=== PATIENT | male | born 1945 | race Caucasian/White ===

== ENCOUNTER → 2019-11-17 | Outpatient (CLI) | payer MEDICARE | END | disposition home or self-care (01) | LOC: COVID19 02:23 | PROVIDERS: ATTEND Ophthalmology | DX: Z01.812 Encounter for preprocedural laboratory examination (principal); Z20.828 Contact with and (suspected) exposure to other viral communicable diseases ==

== ENCOUNTER → 2019-11-22 | Day surgery (SDC) | payer MEDICARE ==
[~2019-11-22] VITALS: Ht 190.5 cm; Wt 83.9 kg
[2019-11-22 09:08] VITALS: BP 114/61
[2019-11-22 10:21] VITALS: BP 96/61
[2019-11-22 10:35] VITALS: BP 112/70
[2019-11-22 10:48] VITALS: BP 117/68
== END | disposition home or self-care (01) ==
LOC: SDC 11-16 11:00
PROVIDERS: ATTEND Ophthalmology
DX: H25.811 Combined forms of age-related cataract, right eye (principal)

== ENCOUNTER → 2020-01-12 | Outpatient (CLI) | payer MEDICARE ==
[~2020-01-12] MED LIST: [UNRECOGNIZED DRUG - REMARK]
== END | disposition home or self-care (01) ==
LOC: COVID19 09:34
PROVIDERS: ATTEND Ophthalmology
DX: Z01.812 Encounter for preprocedural laboratory examination (principal); Z20.828 Contact with and (suspected) exposure to other viral communicable diseases

== ENCOUNTER → 2020-03-15 | Outpatient (CLI) | payer MEDICARE ==
[~2020-03-15] MED LIST changes: +HYDROCODONE-AC1 EAC1 PO; +METOPROLOL SUCC50 M1 PO; +NOVOLOG FL100 UNIT/2 SC; +VITAMIN D350 MC2 PO; +XARE20MG PO; +ZOSYN 4.54.5 GM/100 IV
== END | disposition home or self-care (01) ==
LOC: COVID19 08:12
PROVIDERS: ATTEND Ophthalmology
DX: Z20.822 Contact with and (suspected) exposure to COVID-19 (principal)

== ENCOUNTER → 2020-03-20 | Day surgery (SDC) | payer MEDICARE ==
[~2020-03-20] VITALS: Ht 188 cm; Wt 84.0 kg
[2020-03-20 08:25] VITALS: BP 142/73
[2020-03-20 10:11] VITALS: BP 136/75
[2020-03-20 10:26] VITALS: BP 141/80
[2020-03-20 10:41] VITALS: BP 138/76
== END ==
LOC: SDC 01-12 09:30
PROVIDERS: ATTEND Ophthalmology
DX: H25.812 Combined forms of age-related cataract, left eye (principal); Z87.891 Personal history of nicotine dependence

== ENCOUNTER 2020-05-27 08:20 | Inpatient (IN) | payer MEDICARE ==
[~2020-05-27] VITALS: Ht 193 cm; Wt 75.3 kg
[2020-05-27] VITALS (11 sets, daily range): BP systolic 90–172; BP diastolic 39–153
[~2020-05-27 08:20] MED LIST changes: -HYDROCODONE-AC1 EAC1 PO; -METOPROLOL SUCC50 M1 PO; -NOVOLOG FL100 UNIT/2 SC; -VITAMIN D350 MC2 PO; -XARE20MG PO; -ZOSYN 4.54.5 GM/100 IV
[2020-05-27 09:09] LABS: HEMATOCRIT 34.1 % (42.0-52.0); MEAN CORPUSCULAR HGB 28.8 pg (27.0-31.0); MEAN PLATELET VOLUME 9.2 fl (9.6-12.3); PLATELET COUNT AUTOMATED 354 10*3/uL (130-400); RED BLOOD COUNT 3.79 10*6/uL (4.50-5.90); RED CELL DISTRI WIDTH 14.1 % (0-14.5)
[2020-05-27 09:14] LABS: ACT PARTIAL THROMBO TIME 33.8 SECONDS (20.0-32.1); INTERNATIONAL NORM RATIO 1.3 (2.0-3.5)
[2020-05-27 09:28] LABS: BURR CELLS FEW; PLATELET SUFFICIENCY NORMAL (NORMAL); ROULEAUX SLIGHT; TOTAL CELLS COUNTED 100 #CELLS; TOXIC GRANULATION SLIGHT; VACUOLATION OF NEUTROPHILS SLIGHT
[2020-05-27 09:29] LABS: TROPONIN I < 0.015 ng/ml (<0.045)
[2020-05-27 09:30] LABS: ALBUMIN 1.3 gm/dl (3.1-4.5); ALKALINE PHOSPHATASE 133 U/L (45-117); BUN 15 mg/dl (7-24); CHLORIDE 92 mmol/L (98-107); CREATININE 0.82 mg/dL (0.70-1.30); LIPASE 43 U/L (73-393); POTASSIUM 4.1 mmol/L (3.5-5.1); SGOT/AST 28 IU/L (3-35); SGPT/ALT 19 U/L (12-78); SODIUM 125 mmol/L (136-145); TOTAL PROTEIN 8.1 gm/dL (6.4-8.2)
[2020-05-28 01:08] VITALS: BP 125/76
[2020-05-28 07:16] LABS: HEMATOCRIT 29.4 % (42.0-52.0); MEAN CELL VOLUME 92.2 fl (80.0-94.0); MEAN CORPUSCULAR HGB 28.2 pg (27.0-31.0); MEAN CORPUSCULAR HGB CONC 30.6 g/dl (33.0-37.0); MEAN PLATELET VOLUME 9.2 fl (9.6-12.3); PLATELET COUNT AUTOMATED 271 10*3/uL (130-400); RED BLOOD COUNT 3.19 10*6/uL (4.50-5.90); RED CELL DISTRI WIDTH 14.6 % (0-14.5); WHITE BLOOD COUNT 22.7 10*3/uL (4.8-10.8)
[2020-05-28 07:40] LABS: BURR CELLS MODERATE; PLATELET SUFFICIENCY NORMAL (NORMAL); ROULEAUX MODERATE; TOTAL CELLS COUNTED 100 #CELLS; TOXIC GRANULATION SLIGHT
[2020-05-28 07:50] LABS: BUN 12 mg/dl (7-24); CHLORIDE 102 mmol/L (98-107); CHOLESTEROL 53 mg/dL (<200); CREATININE 0.73 mg/dL (0.70-1.30); FREE T4 0.91 ng/dl (0.76-1.46); HDL CHOLESTEROL 18 mg/dl (40-60); LDL CHOLESTEROL 23 mg/dL (9-159); POTASSIUM 3.6 mmol/L (3.5-5.1); SGOT/AST 20 IU/L (3-35); SGPT/ALT 16 U/L (12-78); SODIUM 133 mmol/L (136-145); TOTAL PROTEIN 6.8 gm/dL (6.4-8.2); TRIGLYCERIDES 60 mg/dl (<150); VLDL CHOLESTEROL 12 mg/dL (6-40)
[2020-05-28 07:54] LABS: ALKALINE PHOSPHATASE 109 U/L (45-117)
[2020-05-28 09:11] LABS: VITAMIN D, 25-HYDROXY 10.5 ng/mL (30-100)
[2020-05-28 12:00] VITALS: BP 139/69
[2020-05-28 16:00] VITALS: BP 136/69
[2020-05-28 20:00] VITALS: BP 91/60
[2020-05-29] VITALS (9 sets, daily range): BP systolic 87–112; BP diastolic 48–69
[2020-05-29 06:49] LABS: BASO % 0.1 % (0.0-1.0); EOS % 0.1 % (1.0-4.0); HEMATOCRIT 26.5 % (42.0-52.0); LYMPH # 1.4 10*3/uL (1.3-4.4); LYMPH % 10.3 % (27.0-41.0); MEAN CELL VOLUME 91.1 fl (80.0-94.0); MEAN CORPUSCULAR HGB 28.5 pg (27.0-31.0); MEAN CORPUSCULAR HGB CONC 31.3 g/dl (33.0-37.0); MEAN PLATELET VOLUME 8.9 fl (9.6-12.3); MONO # 0.7 10*3/uL (0.1-1.0); MONO % 5.1 % (3.0-9.0); NEUT % 83.4 % (47.0-73.0); PLATELET COUNT AUTOMATED 249 10*3/uL (130-400); RED BLOOD COUNT 2.91 10*6/uL (4.50-5.90); RED CELL DISTRI WIDTH 14.6 % (0-14.5); WHITE BLOOD COUNT 13.2 10*3/uL (4.8-10.8)
[2020-05-29 07:05] LABS: ALBUMIN 0.9 gm/dl (3.1-4.5); ALKALINE PHOSPHATASE 92 U/L (45-117); BUN 8 mg/dl (7-24); CHLORIDE 103 mmol/L (98-107); CREATININE 0.57 mg/dL (0.70-1.30); POTASSIUM 3.4 mmol/L (3.5-5.1); SGOT/AST 19 IU/L (3-35); SGPT/ALT 13 U/L (12-78); SODIUM 134 mmol/L (136-145); TOTAL PROTEIN 6.4 gm/dL (6.4-8.2)
[2020-05-29 12:07] LABS: ACID FAST SPEC PROCESSING Tissue Grinding (.)
[2020-05-30] VITALS: BP 98/44
[2020-05-30 08:00] VITALS: BP 96/50
[2020-05-30 08:41] LABS: BASO % 0.1 % (0.0-1.0); EOS % 0.1 % (1.0-4.0); HEMATOCRIT 26.6 % (42.0-52.0); LYMPH # 1.6 10*3/uL (1.3-4.4); LYMPH % 10.4 % (27.0-41.0); MEAN CELL VOLUME 92.7 fl (80.0-94.0); MEAN CORPUSCULAR HGB 28.6 pg (27.0-31.0); MEAN CORPUSCULAR HGB CONC 30.8 g/dl (33.0-37.0); MEAN PLATELET VOLUME 8.8 fl (9.6-12.3); MONO # 0.9 10*3/uL (0.1-1.0); MONO % 5.4 % (3.0-9.0); PLATELET COUNT AUTOMATED 250 10*3/uL (130-400); RED BLOOD COUNT 2.87 10*6/uL (4.50-5.90); RED CELL DISTRI WIDTH 14.6 % (0-14.5); WHITE BLOOD COUNT 15.7 10*3/uL (4.8-10.8)
[2020-05-30 12:00] VITALS: BP 109/56
[2020-05-30 16:00] VITALS: BP 105/62
[2020-05-30 20:00] VITALS: BP 96/54
[2020-05-31] VITALS: BP 103/53
[2020-05-31 06:12] LABS: BASO % 0.3 % (0.0-1.0); EOS % 0.3 % (1.0-4.0); HEMATOCRIT 26.8 % (42.0-52.0); LYMPH # 1.4 10*3/uL (1.3-4.4); LYMPH % 18.2 % (27.0-41.0); MEAN CELL VOLUME 91.8 fl (80.0-94.0); MEAN CORPUSCULAR HGB 28.1 pg (27.0-31.0); MEAN CORPUSCULAR HGB CONC 30.6 g/dl (33.0-37.0); MONO # 0.5 10*3/uL (0.1-1.0); MONO % 6.5 % (3.0-9.0); NEUT # 5.7 10*3/uL (2.3-7.9); NEUT % 73.5 % (47.0-73.0); PLATELET COUNT AUTOMATED 260 10*3/uL (130-400); RED BLOOD COUNT 2.92 10*6/uL (4.50-5.90); RED CELL DISTRI WIDTH 14.6 % (0-14.5); WHITE BLOOD COUNT 7.8 10*3/uL (4.8-10.8)
[2020-05-31 08:00] VITALS: BP 98/52
[2020-05-31 10:40] VITALS: BP 112/68
[2020-05-31 12:00] VITALS: BP 110/54
[2020-05-31] MEDS ORDERED: ZOSYN 4.54.5 GM/100 IV (13:22)
[2020-05-31] MEDS ORDERED: VITAMIN D350 MC2 PO (13:22)
[2020-05-31] MEDS ORDERED: XARE20MG PO (13:22)
[2020-05-31] MEDS ORDERED: METOPROLOL SUCC50 M1 PO (13:22)
[2020-05-31] MEDS ORDERED: HYDROCODONE-AC1 EAC1 PO (13:23)
[2020-05-31] MEDS ORDERED: NOVOLOG FL100 UNIT/2 SC (13:27)
[2020-05-31 14:08] LABS: ACID FAST SPEC PROCESSING Tissue Grinding (.)
[2020-05-31 14:08] LABS: ACID FAST SPEC PROCESSING Tissue Grinding (.)
[2020-05-31 16:00] VITALS: BP 105/70
== END 2020-05-31 17:24 | DRG 853 ==
LOC: ED 08:20 → 5E 10:03 → EDHOLD 10:03 → 5E 11:54
PROVIDERS: Emergency Medicine; Internal Medicine; Podiatrist; Registered Nurse; ADMIT Internal Medicine; ATTEND Internal Medicine
PROC: 0Y6M0Z0 Detachment at Right Foot, Complete, Open Approach (ICD-10-PCS; principal; 2020-05-27)
PROC: 0QBG0ZZ Excision of Right Tibia, Open Approach (ICD-10-PCS; 2020-05-27)
PROC: 0QBG0ZX Excision of Right Tibia, Open Approach, Diagnostic (ICD-10-PCS; 2020-05-27)
PROC: 0YBK0ZZ Excision of Right Ankle Region, Open Approach (ICD-10-PCS; 2020-05-29)
PROC: 0SBF0ZX Excision of Right Ankle Joint, Open Approach, Diagnostic (ICD-10-PCS; 2020-05-29)
PROC: 02HV33Z Insertion of Infusion Device into Superior Vena Cava, Percutaneous Approach (ICD-10-PCS; 2020-05-31)
PROC: B548ZZA Ultrasonography of Superior Vena Cava, Guidance (ICD-10-PCS; 2020-05-31)
DX: A41.9 Sepsis, unspecified organism (principal); A48.0 Gas gangrene; E43 Unspecified severe protein-calorie malnutrition; M72.6 Necrotizing fasciitis; M86.171 Other acute osteomyelitis, right ankle and foot; E87.2 Acidosis; T79.A21A Traumatic compartment syndrome of right lower extremity, initial encounter; E11.52 Type 2 diabetes mellitus with diabetic peripheral angiopathy with gangrene; E87.1 Hypo-osmolality and hyponatremia; R17 Unspecified jaundice; L03.115 Cellulitis of right lower limb; R65.20 Severe sepsis without septic shock; D64.9 Anemia, unspecified; E11.69 Type 2 diabetes mellitus with other specified complication; I48.91 Unspecified atrial fibrillation; E11.65 Type 2 diabetes mellitus with hyperglycemia; E11.42 Type 2 diabetes mellitus with diabetic polyneuropathy; E11.621 Type 2 diabetes mellitus with foot ulcer; L97.513 Non-pressure chronic ulcer of other part of right foot with necrosis of muscle; E11.628 Type 2 diabetes mellitus with other skin complications; B96.20 Unspecified Escherichia coli [E. coli] as the cause of diseases classified elsewhere; X58.XXXA Exposure to other specified factors, initial encounter; Y93.89 Activity, other specified; Y92.89 Other specified places as the place of occurrence of the external cause; Y99.8 Other external cause status; Z87.891 Personal history of nicotine dependence; Z83.3 Family history of diabetes mellitus; Z82.49 Family history of ischemic heart disease and other diseases of the circulatory system; Z68.20 Body mass index [BMI] 20.0-20.9, adult; Z20.822 Contact with and (suspected) exposure to COVID-19

== ENCOUNTER → 2021-07-21 | Outpatient (CLI) | payer MEDICARE ==
[~2021-07-21] MED LIST changes: +CHLORPROMA25 MG/1 ML IM; +FUROSEMIDE40 MG PO; +HYDROCODONE-AC1 EAC1 PO; +LEVOFLOXACIN500 MG PO; +Lanoxin PO; +METFORMIN HYDR500 MG PO; +METOPROLOL SUCC50 M1 PO; +MIRTAZAPINE15 M2 PO; +MUCUS RELIEF600 MG PO; +NOVOLOG FL100 UNIT/2 SC; +VITAMIN D350 MC2 PO; +XARE20MG PO; +ZESTRIL5 MG PO; +ZOSYN 4.54.5 GM/100 IV
== END | disposition home or self-care (01) ==
LOC: RAD 13:37
PROVIDERS: ATTEND Orthopaedic Surgery
DX: M17.12 Unilateral primary osteoarthritis, left knee (principal)

== ENCOUNTER 2021-08-07 16:31 | Inpatient (IN) | payer MEDICARE ==
[2021-08-07] VITALS (10 sets, daily range): BP systolic 100–116; BP diastolic 50–64
[~2021-08-07] VITALS: Ht 190.5 cm; Wt 67.4 kg
[2021-08-07 17:36] LABS: MEAN CELL VOLUME 87.9 fl (80.0-94.0); MEAN CORPUSCULAR HGB 26.4 pg (27.0-31.0); MEAN PLATELET VOLUME 8.5 fl (9.6-12.3); PLATELET COUNT AUTOMATED 338 10*3/uL (130-400); RED BLOOD COUNT 2.39 10*6/uL (4.50-5.90); RED CELL DISTRI WIDTH 16.7 % (0-14.5); WHITE BLOOD COUNT 12.5 10*3/uL (4.8-10.8)
[2021-08-07 17:43] LABS: MANUAL DIFF REFLEX YES
[2021-08-07 17:49] LABS: ACT PARTIAL THROMBO TIME 34.7 SECONDS (20.0-32.1); INTERNATIONAL NORM RATIO 1.5 (2.0-3.5)
[2021-08-07 17:53] LABS: ALKALINE PHOSPHATASE 89 U/L (45-117); BUN 18 mg/dl (7-24); CHLORIDE 103 mmol/L (98-107); CREATININE 0.93 mg/dL (0.70-1.30); POTASSIUM 4.7 mmol/L (3.5-5.1); SGOT/AST 16 IU/L (3-35); SGPT/ALT 9 U/L (12-78); SODIUM 136 mmol/L (136-145); TOTAL PROTEIN 7.7 gm/dL (6.4-8.2)
[2021-08-07 17:58] LABS: BASOPHILS 1 % (0-1); POLYCHROMASIA SLIGHT; TOTAL CELLS COUNTED 100 #CELLS; TOXIC GRANULATION SLIGHT
[2021-08-07 17:59] LABS: PLATELET SUFFICIENCY NORMAL (NORMAL); STOMATOCYTE FEW
[2021-08-07 18:00] LABS: OVALOCYTES FEW
[2021-08-07 23:20] LABS: BASO % 0.3 % (0.0-1.0); EOS # 0.1 10*3/uL (0.0-0.4); EOS % 0.5 % (1.0-4.0); HEMATOCRIT 23.3 % (42.0-52.0); LYMPH # 1.9 10*3/uL (1.3-4.4); LYMPH % 15.7 % (27.0-41.0); MEAN CELL VOLUME 86.3 fl (80.0-94.0); MEAN CORPUSCULAR HGB CONC 31.3 g/dl (33.0-37.0); MEAN PLATELET VOLUME 8.3 fl (9.6-12.3); MONO # 0.9 10*3/uL (0.1-1.0); MONO % 7.7 % (3.0-9.0); NEUT # 8.9 10*3/uL (2.3-7.9); NEUT % 74.7 % (47.0-73.0); PLATELET COUNT AUTOMATED 329 10*3/uL (130-400); RED CELL DISTRI WIDTH 16.4 % (0-14.5); WHITE BLOOD COUNT 11.9 10*3/uL (4.8-10.8)
[2021-08-08] VITALS (7 sets, daily range): BP systolic 104–122; BP diastolic 49–67
[2021-08-08] MEDS ORDERED: TYLENOL325 M1 PO (00:14)
[2021-08-08] MEDS ORDERED: MORGIDOX100 MG PO (00:15)
[2021-08-08] MEDS ORDERED: HEARTBURN RELIE20 MG PO (00:16)
[2021-08-08] MEDS ORDERED: CEPHALEXIN500 M1 PO (00:17)
[2021-08-08] MEDS ORDERED: TOPROL XL50 M1 PO (00:20)
[2021-08-08] MEDS ORDERED: COMPLETE SENIO1 EACH PO (00:21)
[2021-08-08] MEDS ORDERED: OMEPRAZOLE40 MG PO (00:22)
[2021-08-08] MEDS ORDERED: ISO D3 2,000 U1 EACH PO (00:23)
[2021-08-08 06:41] LABS: BASO # 0.1 10*3/uL (0.0-0.1); BASO % 0.4 % (0.0-1.0); EOS # 0.1 10*3/uL (0.0-0.4); EOS % 0.4 % (1.0-4.0); LYMPH # 1.6 10*3/uL (1.3-4.4); LYMPH % 13.9 % (27.0-41.0); MEAN CELL VOLUME 87.1 fl (80.0-94.0); MEAN CORPUSCULAR HGB 26.8 pg (27.0-31.0); MEAN CORPUSCULAR HGB CONC 30.8 g/dl (33.0-37.0); MEAN PLATELET VOLUME 8.8 fl (9.6-12.3); MONO # 0.9 10*3/uL (0.1-1.0); MONO % 7.4 % (3.0-9.0); NEUT # 8.8 10*3/uL (2.3-7.9); NEUT % 76.6 % (47.0-73.0); PLATELET COUNT AUTOMATED 407 10*3/uL (130-400); RED BLOOD COUNT 2.87 10*6/uL (4.50-5.90); RED CELL DISTRI WIDTH 16.4 % (0-14.5); WHITE BLOOD COUNT 11.5 10*3/uL (4.8-10.8)
[2021-08-08 06:57] LABS: ALKALINE PHOSPHATASE 81 U/L (45-117); BUN 15 mg/dl (7-24); CHLORIDE 104 mmol/L (98-107); CHOLESTEROL 75 mg/dL (<200); CREATININE 0.76 mg/dL (0.70-1.30); LDL CHOLESTEROL 27 mg/dL (9-159); POTASSIUM 3.9 mmol/L (3.5-5.1); SGOT/AST 14 IU/L (3-35); SGPT/ALT 7 U/L (12-78); SODIUM 140 mmol/L (136-145); TOTAL PROTEIN 7.4 gm/dL (6.4-8.2); TRIGLYCERIDES 79 mg/dl (<150)
[2021-08-08 10:43] LABS: VITAMIN D, 25-HYDROXY 68.9 ng/mL (30-100)
[2021-08-08] MEDS ORDERED: ZOSYN 3.373.375 GM/1 IV (11:09)
[2021-08-08] MEDS ORDERED: VANCO 750750 MG/250 IV (11:10)
[2021-08-08 21:45] LABS: BILIRUBIN Negative (Negative); BLOOD 2+ (Negative); CLARITY Clear (Clear); COLOR Yellow (Yellow); GLUCOSE Negative (Negative); KETONE Negative (Negative); LEUKO ESTERASE Negative (Negative); NITRITE Negative (Negative); SPECIFIC GRAVITY 1.015 (1.001-1.030)
[2021-08-08 21:54] LABS: BACTERIA 1+; RBC 31-40 rbc/hpf (0-2)
[2021-08-09 03:56] VITALS: BP 128/64
[2021-08-09 07:45] VITALS: BP 134/60
[2021-08-09 14:50] VITALS: BP 138/56
[2021-08-09 20:00] VITALS: BP 107/60
[2021-08-10] VITALS: BP 116/68
[2021-08-10 08:00] VITALS: BP 138/69
[2021-08-10 08:29] LABS: BASO % 0.5 % (0.0-1.0); EOS # 0.1 10*3/uL (0.0-0.4); EOS % 1.3 % (1.0-4.0); HEMATOCRIT 26.4 % (42.0-52.0); LYMPH # 1.3 10*3/uL (1.3-4.4); LYMPH % 15.9 % (27.0-41.0); MEAN CELL VOLUME 88.3 fl (80.0-94.0); MEAN CORPUSCULAR HGB 26.1 pg (27.0-31.0); MEAN CORPUSCULAR HGB CONC 29.5 g/dl (33.0-37.0); MEAN PLATELET VOLUME 8.4 fl (9.6-12.3); MONO # 0.7 10*3/uL (0.1-1.0); MONO % 8.4 % (3.0-9.0); NEUT # 6.2 10*3/uL (2.3-7.9); NEUT % 73.1 % (47.0-73.0); PLATELET COUNT AUTOMATED 343 10*3/uL (130-400); RED BLOOD COUNT 2.99 10*6/uL (4.50-5.90); RED CELL DISTRI WIDTH 16.7 % (0-14.5); WHITE BLOOD COUNT 8.4 10*3/uL (4.8-10.8)
[2021-08-10 08:58] LABS: ALKALINE PHOSPHATASE 85 U/L (45-117); BUN 11 mg/dl (7-24); CHLORIDE 107 mmol/L (98-107); CREATININE 0.85 mg/dL (0.70-1.30); POTASSIUM 4.1 mmol/L (3.5-5.1); SGOT/AST 14 IU/L (3-35); SGPT/ALT 8 U/L (12-78); SODIUM 141 mmol/L (136-145); TOTAL PROTEIN 7.7 gm/dL (6.4-8.2)
[2021-08-10 12:00] VITALS: BP 132/65
[2021-08-10 16:00] VITALS: BP 123/71
[2021-08-10 20:00] VITALS: BP 121/68
[2021-08-11] VITALS: BP 126/56
[2021-08-11 07:09] LABS: BASO % 0.5 % (0.0-1.0); EOS # 0.3 10*3/uL (0.0-0.4); EOS % 3.1 % (1.0-4.0); HEMATOCRIT 25.4 % (42.0-52.0); LYMPH # 1.5 10*3/uL (1.3-4.4); LYMPH % 17.8 % (27.0-41.0); MEAN CELL VOLUME 89.4 fl (80.0-94.0); MEAN CORPUSCULAR HGB 26.1 pg (27.0-31.0); MEAN CORPUSCULAR HGB CONC 29.1 g/dl (33.0-37.0); MEAN PLATELET VOLUME 8.5 fl (9.6-12.3); MONO # 0.7 10*3/uL (0.1-1.0); MONO % 8.8 % (3.0-9.0); NEUT # 5.8 10*3/uL (2.3-7.9); PLATELET COUNT AUTOMATED 341 10*3/uL (130-400); RED BLOOD COUNT 2.84 10*6/uL (4.50-5.90); RED CELL DISTRI WIDTH 16.8 % (0-14.5); WHITE BLOOD COUNT 8.4 10*3/uL (4.8-10.8)
[2021-08-11 07:23] LABS: BUN 9 mg/dl (7-24); CHLORIDE 108 mmol/L (98-107); CREATININE 0.84 mg/dL (0.70-1.30); SODIUM 142 mmol/L (136-145)
[2021-08-11 08:00] VITALS: BP 135/53
[2021-08-11 12:00] VITALS: BP 150/52
[2021-08-11 16:00] VITALS: BP 132/69
[2021-08-11 20:00] VITALS: BP 134/61
[2021-08-12] VITALS: BP 124/60
[2021-08-12 06:18] LABS: BASO # 0.1 10*3/uL (0.0-0.1); BASO % 0.5 % (0.0-1.0); EOS # 0.4 10*3/uL (0.0-0.4); EOS % 3.9 % (1.0-4.0); HEMATOCRIT 24.6 % (42.0-52.0); LYMPH # 1.6 10*3/uL (1.3-4.4); LYMPH % 15.7 % (27.0-41.0); MEAN CELL VOLUME 90.1 fl (80.0-94.0); MEAN CORPUSCULAR HGB 27.1 pg (27.0-31.0); MEAN CORPUSCULAR HGB CONC 30.1 g/dl (33.0-37.0); MEAN PLATELET VOLUME 8.7 fl (9.6-12.3); MONO # 0.8 10*3/uL (0.1-1.0); NEUT # 7.4 10*3/uL (2.3-7.9); NEUT % 71.2 % (47.0-73.0); PLATELET COUNT AUTOMATED 310 10*3/uL (130-400); RED BLOOD COUNT 2.73 10*6/uL (4.50-5.90); WHITE BLOOD COUNT 10.3 10*3/uL (4.8-10.8)
[2021-08-12 08:00] VITALS: BP 126/68
[2021-08-12 12:00] VITALS: BP 118/56
[2021-08-12 16:00] VITALS: BP 123/62
[2021-08-12 20:00] VITALS: BP 117/61
[2021-08-13] VITALS: BP 120/76
[2021-08-13 08:00] VITALS: BP 138/54
[2021-08-13 12:00] VITALS: BP 132/68
[2021-08-13 16:00] VITALS: BP 123/53
[2021-08-13 20:00] VITALS: BP 130/62
== END 2021-08-13 20:50 | disposition short-term general hospital (02) | DRG 871 ==
LOC: ED 16:31 → 5E 17:19 → EDHOLD 17:19 → ED 17:26 → EDHOLD 17:26 → ED 21:48 → EDHOLD 21:48 → 5E 08-09 14:09
PROVIDERS: Emergency Medicine; Family Medicine; Internal Medicine; ADMIT Student in an Organized Health Care Education/Training Program; ATTEND Student in an Organized Health Care Education/Training Program
PROC: 30233N1 Transfusion of Nonautologous Red Blood Cells into Peripheral Vein, Percutaneous Approach (ICD-10-PCS; principal; 2021-08-07)
DX: A41.9 Sepsis, unspecified organism (principal); E43 Unspecified severe protein-calorie malnutrition; L02.214 Cutaneous abscess of groin; I48.21 Permanent atrial fibrillation; Z68.1 Body mass index [BMI] 19.9 or less, adult; D64.9 Anemia, unspecified; E11.69 Type 2 diabetes mellitus with other specified complication; R65.20 Severe sepsis without septic shock; Z20.822 Contact with and (suspected) exposure to COVID-19; S31.104A Unspecified open wound of abdominal wall, left lower quadrant without penetration into peritoneal cavity, initial encounter; X58.XXXA Exposure to other specified factors, initial encounter; Z98.41 Cataract extraction status, right eye; Z87.891 Personal history of nicotine dependence; Z82.49 Family history of ischemic heart disease and other diseases of the circulatory system; Y93.89 Activity, other specified; Y92.89 Other specified places as the place of occurrence of the external cause; Y99.8 Other external cause status; Z89.611 Acquired absence of right leg above knee; I73.9 Peripheral vascular disease, unspecified

== ENCOUNTER 2021-10-06 01:55 | Inpatient (IN) | payer MEDICARE ==
[~2021-10-06] VITALS: Ht 190.5 cm; Wt 74.4 kg
[~2021-10-06 01:55] MED LIST changes: +CEPHALEXIN500 M1 PO; +CIPRO500 MG PO; +COMPLETE SENIO1 EACH PO; +HEARTBURN RELIE20 MG PO; +ISO D3 2,000 U1 EACH PO; +MORGIDOX100 MG PO; +OMEPRAZOLE40 MG PO; +TOPROL XL50 M1 PO; +TYLENOL325 M1 PO; +VANCO 750750 MG/250 IV; +ZOSYN 3.373.375 GM/1 IV
[2021-10-06 01:56] VITALS: BP 143/67
[2021-10-06 03:08] LABS: BASO % 0.5 % (0.0-1.0); EOS % 0.7 % (1.0-4.0); HEMATOCRIT 25.2 % (42.0-52.0); LYMPH # 0.6 10*3/uL (1.3-4.4); LYMPH % 9.2 % (27.0-41.0); MEAN CELL VOLUME 95.5 fl (80.0-94.0); MEAN CORPUSCULAR HGB 29.9 pg (27.0-31.0); MEAN CORPUSCULAR HGB CONC 31.3 g/dl (33.0-37.0); MEAN PLATELET VOLUME 8.7 fl (9.6-12.3); MONO # 0.4 10*3/uL (0.1-1.0); MONO % 6.8 % (3.0-9.0); NEUT # 4.9 10*3/uL (2.3-7.9); NEUT % 82.3 % (47.0-73.0); PLATELET COUNT AUTOMATED 242 10*3/uL (130-400); RED BLOOD COUNT 2.64 10*6/uL (4.50-5.90); RED CELL DISTRI WIDTH 17.2 % (0-14.5)
[2021-10-06 03:23] LABS: CREATININE 3.89 mg/dL (0.70-1.30); POTASSIUM 4.4 mmol/L (3.5-5.1); TOTAL PROTEIN 8.2 gm/dL (6.4-8.2)
[2021-10-06 04:07] LABS: BILIRUBIN Negative (Negative); BLOOD 3+ (Negative); CLARITY Cloudy (Clear); COLOR Yellow (Yellow); GLUCOSE Negative (Negative); KETONE Negative (Negative); LEUKO ESTERASE 3+ (Negative); NITRITE Negative (Negative); SPECIFIC GRAVITY 1.015 (1.001-1.030); UROBILINOGEN 0.2 E.U./dl (0.0-1.0)
[2021-10-06 04:24] LABS: YEAST 2+
[2021-10-06 04:25] LABS: BACTERIA 1+; RBC 31-40 rbc/hpf (0-2); WBC 41-50 wbc/hpf (0-5)
[2021-10-06 07:52] VITALS: BP 147/79
[2021-10-06 10:15] VITALS: BP 130/52
[2021-10-06 12:00] VITALS: BP 132/61
[2021-10-06 16:00] VITALS: BP 135/71
[2021-10-06 20:02] VITALS: BP 138/70
[2021-10-07 04:16] VITALS: BP 122/70
[2021-10-07 06:41] LABS: CREATININE 3.66 mg/dL (0.70-1.30); POTASSIUM 4.4 mmol/L (3.5-5.1)
[2021-10-07 06:42] LABS: BASO % 0.5 % (0.0-1.0); EOS # 0.1 10*3/uL (0.0-0.4); EOS % 1.1 % (1.0-4.0); HEMATOCRIT 27.4 % (42.0-52.0); LYMPH # 0.7 10*3/uL (1.3-4.4); LYMPH % 12.7 % (27.0-41.0); MEAN CORPUSCULAR HGB 30.1 pg (27.0-31.0); MEAN CORPUSCULAR HGB CONC 30.3 g/dl (33.0-37.0); MEAN PLATELET VOLUME 8.8 fl (9.6-12.3); MONO # 0.5 10*3/uL (0.1-1.0); MONO % 8.1 % (3.0-9.0); NEUT # 4.4 10*3/uL (2.3-7.9); NEUT % 77.1 % (47.0-73.0); PLATELET COUNT AUTOMATED 261 10*3/uL (130-400); RED BLOOD COUNT 2.76 10*6/uL (4.50-5.90); RED CELL DISTRI WIDTH 17.4 % (0-14.5); WHITE BLOOD COUNT 5.7 10*3/uL (4.8-10.8)
[2021-10-07 06:45] LABS: FREE T4 0.8 ng/dl (0.76-1.46); TOTAL PROTEIN 7.9 gm/dL (6.4-8.2)
[2021-10-07 07:40] LABS: MEAN CELL VOLUME 99.3 fl (80.0-94.0)
[2021-10-07 08:03] VITALS: BP 127/69
[2021-10-07 12:45] VITALS: BP 141/71
[2021-10-07] MEDS ORDERED: DULCOLAX10 M1 R (14:06)
[2021-10-07] MEDS ORDERED: VITAMIN D310 MC3 PO (14:09)
[2021-10-07] MEDS ORDERED: VITAMIN B-12250 MCG PO (14:12)
[2021-10-07] MEDS ORDERED: DIGOXIN125 MCG PO (14:14)
[2021-10-07] MEDS ORDERED: FLEET ENEMA 13133 ML R (14:17)
[2021-10-07] MEDS ORDERED: INSULIN LI100 UNIT/1 SQ (14:20)
[2021-10-07] MEDS ORDERED: MOM30 M1 PO (14:26)
[2021-10-07 16:00] VITALS: BP 142/65
[2021-10-07] MEDS ORDERED: MIRTAZAPINE15 M2 PO (16:35)
[2021-10-07] MEDS ORDERED: XARE15TA PO (16:36)
[2021-10-07 20:00] VITALS: BP 140/72
[2021-10-08] VITALS: BP 152/59
[2021-10-08 06:27] LABS: BASO % 0.6 % (0.0-1.0); EOS % 0.8 % (1.0-4.0); HEMATOCRIT 27.5 % (42.0-52.0); LYMPH # 0.8 10*3/uL (1.3-4.4); LYMPH % 14.4 % (27.0-41.0); MEAN CELL VOLUME 99.6 fl (80.0-94.0); MEAN CORPUSCULAR HGB 30.1 pg (27.0-31.0); MEAN CORPUSCULAR HGB CONC 30.2 g/dl (33.0-37.0); MEAN PLATELET VOLUME 8.9 fl (9.6-12.3); MONO # 0.4 10*3/uL (0.1-1.0); MONO % 7.7 % (3.0-9.0); NEUT % 76.1 % (47.0-73.0); PLATELET COUNT AUTOMATED 257 10*3/uL (130-400); RED BLOOD COUNT 2.76 10*6/uL (4.50-5.90); RED CELL DISTRI WIDTH 17.4 % (0-14.5); WHITE BLOOD COUNT 5.2 10*3/uL (4.8-10.8)
[2021-10-08 06:45] LABS: CREATININE 3.57 mg/dL (0.70-1.30); POTASSIUM 4.5 mmol/L (3.5-5.1)
[2021-10-08 08:00] VITALS: BP 171/78
[2021-10-08 12:00] VITALS: BP 167/70
[2021-10-08 16:00] VITALS: BP 141/58
[2021-10-08 20:00] VITALS: BP 126/77
[2021-10-08 20:20] LABS: URINE CREATININE RANDOM 28.9 mg/dL
[2021-10-09] VITALS: BP 139/77
[2021-10-09 06:10] LABS: CREATININE 3.52 mg/dL (0.70-1.30); POTASSIUM 4.7 mmol/L (3.5-5.1); TOTAL PROTEIN 8.1 gm/dL (6.4-8.2)
[2021-10-09 06:24] LABS: BASO # 0.1 10*3/uL (0.0-0.1); BASO % 0.8 % (0.0-1.0); EOS # 0.1 10*3/uL (0.0-0.4); EOS % 0.9 % (1.0-4.0); HEMATOCRIT 28.4 % (42.0-52.0); LYMPH % 15.7 % (27.0-41.0); MEAN CELL VOLUME 99.3 fl (80.0-94.0); MEAN CORPUSCULAR HGB 30.1 pg (27.0-31.0); MEAN CORPUSCULAR HGB CONC 30.3 g/dl (33.0-37.0); MEAN PLATELET VOLUME 8.7 fl (9.6-12.3); MONO # 0.6 10*3/uL (0.1-1.0); MONO % 9.6 % (3.0-9.0); NEUT # 4.7 10*3/uL (2.3-7.9); NEUT % 72.4 % (47.0-73.0); PLATELET COUNT AUTOMATED 262 10*3/uL (130-400); RED BLOOD COUNT 2.86 10*6/uL (4.50-5.90); RED CELL DISTRI WIDTH 17.5 % (0-14.5); WHITE BLOOD COUNT 6.4 10*3/uL (4.8-10.8)
[2021-10-09 08:00] VITALS: BP 132/53
[2021-10-09 12:00] VITALS: BP 117/60
[2021-10-09 16:00] VITALS: BP 137/50
[2021-10-09 20:00] VITALS: BP 159/78
[2021-10-10] VITALS: BP 135/72
[2021-10-10 06:44] LABS: BASO % 0.4 % (0.0-1.0); EOS % 0.6 % (1.0-4.0); HEMATOCRIT 25.2 % (42.0-52.0); LYMPH # 0.8 10*3/uL (1.3-4.4); LYMPH % 15.6 % (27.0-41.0); MEAN CORPUSCULAR HGB 29.9 pg (27.0-31.0); MEAN CORPUSCULAR HGB CONC 31.3 g/dl (33.0-37.0); MEAN PLATELET VOLUME 8.7 fl (9.6-12.3); MONO # 0.5 10*3/uL (0.1-1.0); MONO % 9.6 % (3.0-9.0); NEUT # 3.7 10*3/uL (2.3-7.9); NEUT % 73.2 % (47.0-73.0); PLATELET COUNT AUTOMATED 233 10*3/uL (130-400); RED BLOOD COUNT 2.64 10*6/uL (4.50-5.90); RED CELL DISTRI WIDTH 17.4 % (0-14.5)
[2021-10-10 06:49] LABS: MEAN CELL VOLUME 95.5 fl (80.0-94.0)
[2021-10-10 06:54] LABS: CREATININE 3.53 mg/dL (0.70-1.30); POTASSIUM 4.6 mmol/L (3.5-5.1)
[2021-10-10 08:38] VITALS: BP 140/83
[2021-10-10 12:52] VITALS: BP 144/80
[2021-10-10 13:54] LABS: BF LYMPHOCYTES 38 %; BF MACROPHAGES 49 %; BF MESOTHELIALS 7 %; BF NEUTROPHILS 6 %
[2021-10-10 15:07] LABS: ATYPICAL PANCA >1:640 titer (Neg:<1:20)
[2021-10-10 16:36] VITALS: BP 139/67
[2021-10-10 20:00] VITALS: BP 137/68
[2021-10-11] VITALS: BP 99/50
[2021-10-11 06:56] LABS: BASO % 0.3 % (0.0-1.0); EOS % 0.2 % (1.0-4.0); HEMATOCRIT 26.7 % (42.0-52.0); LYMPH # 0.7 10*3/uL (1.3-4.4); LYMPH % 10.7 % (27.0-41.0); MEAN CELL VOLUME 97.8 fl (80.0-94.0); MEAN CORPUSCULAR HGB CONC 30.7 g/dl (33.0-37.0); MEAN PLATELET VOLUME 8.8 fl (9.6-12.3); MONO # 0.6 10*3/uL (0.1-1.0); MONO % 9.2 % (3.0-9.0); NEUT # 5.3 10*3/uL (2.3-7.9); PLATELET COUNT AUTOMATED 227 10*3/uL (130-400); RED BLOOD COUNT 2.73 10*6/uL (4.50-5.90); RED CELL DISTRI WIDTH 17.8 % (0-14.5); WHITE BLOOD COUNT 6.7 10*3/uL (4.8-10.8)
[2021-10-11 07:10] LABS: CREATININE 3.63 mg/dL (0.70-1.30); POTASSIUM 4.5 mmol/L (3.5-5.1)
[2021-10-11 08:00] VITALS: BP 140/87; BP 147/40
[2021-10-11 12:00] VITALS: BP 115/66; BP 170/50
[2021-10-11 16:00] VITALS: BP 126/58
[2021-10-11 20:00] VITALS: BP 137/74
[2021-10-12] VITALS: BP 132/65
[2021-10-12 06:26] LABS: BASO % 0.6 % (0.0-1.0); EOS # 0.1 10*3/uL (0.0-0.4); EOS % 2.6 % (1.0-4.0); HEMATOCRIT 25.8 % (42.0-52.0); LYMPH # 0.9 10*3/uL (1.3-4.4); MEAN CELL VOLUME 97.7 fl (80.0-94.0); MEAN CORPUSCULAR HGB 30.3 pg (27.0-31.0); MEAN PLATELET VOLUME 8.9 fl (9.6-12.3); MONO # 0.5 10*3/uL (0.1-1.0); MONO % 8.6 % (3.0-9.0); NEUT # 3.8 10*3/uL (2.3-7.9); NEUT % 70.5 % (47.0-73.0); PLATELET COUNT AUTOMATED 205 10*3/uL (130-400); RED BLOOD COUNT 2.64 10*6/uL (4.50-5.90); RED CELL DISTRI WIDTH 17.9 % (0-14.5); WHITE BLOOD COUNT 5.4 10*3/uL (4.8-10.8)
[2021-10-12 06:39] LABS: CREATININE 3.71 mg/dL (0.70-1.30); POTASSIUM 4.3 mmol/L (3.5-5.1)
[2021-10-12 08:00] VITALS: BP 138/58
[2021-10-12 12:00] VITALS: BP 145/72
[2021-10-12 15:58] VITALS: BP 116/68
[2021-10-12 20:00] VITALS: BP 124/69
[2021-10-13] VITALS: BP 126/59
[2021-10-13 06:24] LABS: POTASSIUM 4.4 mmol/L (3.5-5.1)
[2021-10-13 06:26] LABS: BASO % 0.6 % (0.0-1.0); EOS # 0.2 10*3/uL (0.0-0.4); EOS % 2.7 % (1.0-4.0); HEMATOCRIT 27.5 % (42.0-52.0); LYMPH # 0.9 10*3/uL (1.3-4.4); LYMPH % 13.7 % (27.0-41.0); MEAN CELL VOLUME 100.4 fl (80.0-94.0); MEAN CORPUSCULAR HGB 29.9 pg (27.0-31.0); MEAN CORPUSCULAR HGB CONC 29.8 g/dl (33.0-37.0); MEAN PLATELET VOLUME 9.1 fl (9.6-12.3); MONO # 0.7 10*3/uL (0.1-1.0); NEUT # 4.8 10*3/uL (2.3-7.9); NEUT % 71.6 % (47.0-73.0); PLATELET COUNT AUTOMATED 223 10*3/uL (130-400); RED BLOOD COUNT 2.74 10*6/uL (4.50-5.90); RED CELL DISTRI WIDTH 17.8 % (0-14.5); WHITE BLOOD COUNT 6.7 10*3/uL (4.8-10.8)
[2021-10-13 06:28] LABS: CREATININE 3.85 mg/dL (0.70-1.30)
[2021-10-13 08:00] VITALS: BP 144/69
[2021-10-13 12:00] VITALS: BP 113/53
[2021-10-13 16:00] VITALS: BP 129/62
[2021-10-13 20:00] VITALS: BP 119/56
[2021-10-14] VITALS: BP 121/71
[2021-10-14 06:15] LABS: BASO % 0.6 % (0.0-1.0); EOS # 0.2 10*3/uL (0.0-0.4); EOS % 3.7 % (1.0-4.0); HEMATOCRIT 25.6 % (42.0-52.0); LYMPH # 0.9 10*3/uL (1.3-4.4); LYMPH % 18.6 % (27.0-41.0); MEAN CELL VOLUME 98.1 fl (80.0-94.0); MEAN CORPUSCULAR HGB 29.9 pg (27.0-31.0); MEAN CORPUSCULAR HGB CONC 30.5 g/dl (33.0-37.0); MEAN PLATELET VOLUME 9.1 fl (9.6-12.3); MONO # 0.5 10*3/uL (0.1-1.0); MONO % 11.2 % (3.0-9.0); NEUT # 3.2 10*3/uL (2.3-7.9); NEUT % 65.3 % (47.0-73.0); PLATELET COUNT AUTOMATED 193 10*3/uL (130-400); RED BLOOD COUNT 2.61 10*6/uL (4.50-5.90); RED CELL DISTRI WIDTH 17.9 % (0-14.5); WHITE BLOOD COUNT 4.8 10*3/uL (4.8-10.8)
[2021-10-14 06:28] LABS: CREATININE 3.72 mg/dL (0.70-1.30); POTASSIUM 4.3 mmol/L (3.5-5.1)
[2021-10-14 08:00] VITALS: BP 136/77
[2021-10-14 12:00] VITALS: BP 133/65
[2021-10-14 16:00] VITALS: BP 130/73
[2021-10-14 20:00] VITALS: BP 122/74
[2021-10-15] VITALS: BP 116/62
[2021-10-15 06:30] LABS: BASO % 0.6 % (0.0-1.0); EOS # 0.1 10*3/uL (0.0-0.4); EOS % 2.6 % (1.0-4.0); HEMATOCRIT 24.7 % (42.0-52.0); LYMPH # 0.9 10*3/uL (1.3-4.4); LYMPH % 16.6 % (27.0-41.0); MEAN CELL VOLUME 97.6 fl (80.0-94.0); MEAN CORPUSCULAR HGB CONC 30.8 g/dl (33.0-37.0); MEAN PLATELET VOLUME 9.3 fl (9.6-12.3); MONO # 0.6 10*3/uL (0.1-1.0); MONO % 11.7 % (3.0-9.0); NEUT # 3.6 10*3/uL (2.3-7.9); NEUT % 67.7 % (47.0-73.0); PLATELET COUNT AUTOMATED 194 10*3/uL (130-400); RED BLOOD COUNT 2.53 10*6/uL (4.50-5.90); RED CELL DISTRI WIDTH 17.6 % (0-14.5); WHITE BLOOD COUNT 5.3 10*3/uL (4.8-10.8)
[2021-10-15 06:49] LABS: POTASSIUM 4.4 mmol/L (3.5-5.1)
[2021-10-15 06:52] LABS: CREATININE 3.71 mg/dL (0.70-1.30)
[2021-10-15 08:00] VITALS: BP 128/63
[2021-10-15 12:00] VITALS: BP 125/58
[2021-10-15 16:00] VITALS: BP 125/67
[2021-10-15 20:00] VITALS: BP 132/76
[2021-10-16] VITALS: BP 133/70
[2021-10-16 06:19] LABS: BASO % 0.4 % (0.0-1.0); EOS # 0.1 10*3/uL (0.0-0.4); EOS % 2.3 % (1.0-4.0); HEMATOCRIT 25.1 % (42.0-52.0); LYMPH # 0.9 10*3/uL (1.3-4.4); LYMPH % 17.1 % (27.0-41.0); MEAN CELL VOLUME 97.3 fl (80.0-94.0); MEAN CORPUSCULAR HGB 30.2 pg (27.0-31.0); MEAN CORPUSCULAR HGB CONC 31.1 g/dl (33.0-37.0); MEAN PLATELET VOLUME 9.1 fl (9.6-12.3); MONO # 0.6 10*3/uL (0.1-1.0); MONO % 10.6 % (3.0-9.0); NEUT # 3.6 10*3/uL (2.3-7.9); PLATELET COUNT AUTOMATED 179 10*3/uL (130-400); RED BLOOD COUNT 2.58 10*6/uL (4.50-5.90); RED CELL DISTRI WIDTH 17.6 % (0-14.5); WHITE BLOOD COUNT 5.2 10*3/uL (4.8-10.8)
[2021-10-16 06:37] LABS: POTASSIUM 4.6 mmol/L (3.5-5.1)
[2021-10-16 06:42] LABS: CREATININE 3.69 mg/dL (0.70-1.30)
[2021-10-16 08:00] VITALS: BP 123/63
[2021-10-16 12:00] VITALS: BP 104/47
[2021-10-16 16:00] VITALS: BP 118/59
[2021-10-16 20:00] VITALS: BP 129/57
[2021-10-17] VITALS: BP 123/63
[2021-10-17 05:46] LABS: CREATININE 3.63 mg/dL (0.70-1.30); POTASSIUM 4.6 mmol/L (3.5-5.1)
[2021-10-17 06:12] LABS: BASO % 0.6 % (0.0-1.0); EOS # 0.1 10*3/uL (0.0-0.4); EOS % 2.4 % (1.0-4.0); HEMATOCRIT 23.4 % (42.0-52.0); LYMPH # 0.7 10*3/uL (1.3-4.4); LYMPH % 15.1 % (27.0-41.0); MEAN CELL VOLUME 97.9 fl (80.0-94.0); MEAN CORPUSCULAR HGB 30.5 pg (27.0-31.0); MEAN CORPUSCULAR HGB CONC 31.2 g/dl (33.0-37.0); MEAN PLATELET VOLUME 9.1 fl (9.6-12.3); MONO # 0.5 10*3/uL (0.1-1.0); MONO % 10.8 % (3.0-9.0); NEUT # 3.2 10*3/uL (2.3-7.9); PLATELET COUNT AUTOMATED 179 10*3/uL (130-400); RED BLOOD COUNT 2.39 10*6/uL (4.50-5.90); RED CELL DISTRI WIDTH 17.7 % (0-14.5); WHITE BLOOD COUNT 4.6 10*3/uL (4.8-10.8)
[2021-10-17 08:00] VITALS: BP 132/60
[2021-10-17 12:00] VITALS: BP 126/61
[2021-10-17] MEDS ORDERED: FUROSEMIDE40 MG PO (15:57)
[2021-10-17 16:00] VITALS: BP 122/68
== END 2021-10-17 18:00 | DRG 186 ==
LOC: ED 01:55 → 5E 05:57 → EDHOLD 05:57 → 5E 10-07 10:54 → EDHOLD 10-07 10:54 → 5E 10-07 11:56
PROVIDERS: Emergency Medicine; Internal Medicine; Internal Medicine Critical Care Medicine; Internal Medicine Nephrology; Student in an Organized Health Care Education/Training Program; ADMIT Internal Medicine; ATTEND Internal Medicine
PROC: 0W9930Z Drainage of Right Pleural Cavity with Drainage Device, Percutaneous Approach (ICD-10-PCS; principal; 2021-10-10)
PROC: 0WP930Z Removal of Drainage Device from Right Pleural Cavity, Percutaneous Approach (ICD-10-PCS; 2021-10-13)
DX: J90 Pleural effusion, not elsewhere classified (principal); E43 Unspecified severe protein-calorie malnutrition; G93.41 Metabolic encephalopathy; N17.0 Acute kidney failure with tubular necrosis; J18.9 Pneumonia, unspecified organism; I82.411 Acute embolism and thrombosis of right femoral vein; N39.0 Urinary tract infection, site not specified; I50.32 Chronic diastolic (congestive) heart failure; E11.51 Type 2 diabetes mellitus with diabetic peripheral angiopathy without gangrene; I48.91 Unspecified atrial fibrillation; E11.69 Type 2 diabetes mellitus with other specified complication; D64.9 Anemia, unspecified; S91.302A Unspecified open wound, left foot, initial encounter; X58.XXXA Exposure to other specified factors, initial encounter; Y93.89 Activity, other specified; Z98.49 Cataract extraction status, unspecified eye; Z89.611 Acquired absence of right leg above knee; Z82.49 Family history of ischemic heart disease and other diseases of the circulatory system; Y92.89 Other specified places as the place of occurrence of the external cause; Y99.8 Other external cause status; Z68.26 Body mass index [BMI] 26.0-26.9, adult

== ENCOUNTER → 2021-10-13 | Outpatient (CLI) | payer MEDICARE ==
[~2021-10-13] MED LIST changes: +DIGOXIN125 MCG PO; +DULCOLAX10 M1 R; +FLEET ENEMA 13133 ML R; +INSULIN LI100 UNIT/1 SQ; +MOM30 M1 PO; +VITAMIN B-12250 MCG PO; +VITAMIN D310 MC3 PO; +XARE15TA PO
== END ==
LOC: WOUNDCARE 01:04
PROVIDERS: ATTEND Podiatrist Foot & Ankle Surgery
DX: Z53.21 Procedure and treatment not carried out due to patient leaving prior to being seen by health care provider (principal)

== ENCOUNTER 2021-11-28 10:12 | Emergency (ER) | payer MEDICARE ==
[2021-11-28] VITALS (8 sets, daily range): BP systolic 111–132; BP diastolic 54–79
[~2021-11-28] VITALS: Ht 180.3 cm; Wt 68.9 kg
[2021-11-28 10:46] LABS: BASO % 0.5 % (0.0-1.0); EOS # 0.1 10*3/uL (0.0-0.4); EOS % 1.3 % (1.0-4.0); HEMATOCRIT 22.9 % (42.0-52.0); LYMPH # 0.9 10*3/uL (1.3-4.4); LYMPH % 15.5 % (27.0-41.0); MEAN CELL VOLUME 99.1 fl (80.0-94.0); MEAN CORPUSCULAR HGB 31.2 pg (27.0-31.0); MEAN CORPUSCULAR HGB CONC 31.4 g/dl (33.0-37.0); MEAN PLATELET VOLUME 8.2 fl (9.6-12.3); MONO # 0.5 10*3/uL (0.1-1.0); MONO % 8.3 % (3.0-9.0); NEUT # 4.1 10*3/uL (2.3-7.9); NEUT % 73.7 % (47.0-73.0); PLATELET COUNT AUTOMATED 232 10*3/uL (130-400); RED BLOOD COUNT 2.31 10*6/uL (4.50-5.90); RED CELL DISTRI WIDTH 16.2 % (0-14.5); WHITE BLOOD COUNT 5.5 10*3/uL (4.8-10.8)
[2021-11-28 11:05] LABS: CREATININE 3.01 mg/dL (0.70-1.30); POTASSIUM 4.1 mmol/L (3.5-5.1); TOTAL PROTEIN 8.1 gm/dL (6.4-8.2)
== END 2021-11-28 16:12 ==
LOC: ED 10:12
PROVIDERS: Student in an Organized Health Care Education/Training Program
DX: D53.9 Nutritional anemia, unspecified (principal); Z79.899 Other long term (current) drug therapy; Z79.4 Long term (current) use of insulin; Z87.891 Personal history of nicotine dependence; Z89.511 Acquired absence of right leg below knee

== ENCOUNTER 2022-01-22 10:06 | Emergency (ER) | payer MEDICARE ==
[~2022-01-22] VITALS: Wt 69.1 kg
[2022-01-22] MEDS ORDERED: KAPSPARGO SPRIN50 MG PO (10:19)
[2022-01-22] MEDS ORDERED: LOPERAMIDE HCL2 MG PO (10:25)
[2022-01-22] MEDS ORDERED: VIBRAMYCIN100 MG PO (10:26)
[2022-01-22] MEDS ORDERED: FLEET ENEMA 13133 ML R (10:26)
[2022-01-22 10:35] LABS: BASO % 0.4 % (0.0-1.0); EOS # 0.1 10*3/uL (0.0-0.4); EOS % 0.8 % (1.0-4.0); HEMATOCRIT 22.2 % (42.0-52.0); LYMPH # 1.4 10*3/uL (1.3-4.4); LYMPH % 12.4 % (27.0-41.0); MEAN CELL VOLUME 101.4 fl (80.0-94.0); MEAN CORPUSCULAR HGB 32.4 pg (27.0-31.0); MEAN PLATELET VOLUME 8.2 fl (9.6-12.3); MONO # 0.8 10*3/uL (0.1-1.0); MONO % 6.8 % (3.0-9.0); NEUT # 8.7 10*3/uL (2.3-7.9); PLATELET COUNT AUTOMATED 266 10*3/uL (130-400); RED BLOOD COUNT 2.19 10*6/uL (4.50-5.90); RED CELL DISTRI WIDTH 15.6 % (0-14.5)
[2022-01-22 10:48] LABS: ACT PARTIAL THROMBO TIME 34.6 SECONDS (20.0-32.1); INTERNATIONAL NORM RATIO 1.3 (2.0-3.5)
[2022-01-22 10:51] LABS: CREATININE 1.66 mg/dL (0.70-1.30); POTASSIUM 3.7 mmol/L (3.4-5.1); TOTAL PROTEIN 7.3 gm/dL (6.0-8.0)
== END 2022-01-22 16:33 ==
LOC: ED 10:06
PROVIDERS: Emergency Medicine
DX: D53.9 Nutritional anemia, unspecified (principal)

== ENCOUNTER → 2022-02-05 | Outpatient (CLI) | payer MEDICARE ==
[2022-02-05] VITALS (8 sets, daily range): BP systolic 118–140; BP diastolic 62–73
[~2022-02-05] MED LIST changes: +KAPSPARGO SPRIN50 MG PO; +LOPERAMIDE HCL2 MG PO; +VIBRAMYCIN100 MG PO
== END | disposition home or self-care (01) ==
LOC: TRNFUSION 10:00
PROVIDERS: ATTEND Internal Medicine
DX: D64.9 Anemia, unspecified (principal); I10 Essential (primary) hypertension; E11.9 Type 2 diabetes mellitus without complications; I48.91 Unspecified atrial fibrillation; K21.9 Gastro-esophageal reflux disease without esophagitis; F32.A Depression, unspecified

== ENCOUNTER 2022-02-16 10:13 | Emergency (ER) | payer MEDICARE ==
[~2022-02-16] VITALS: Wt 73.5 kg
[2022-02-16 11:01] LABS: MEAN CELL VOLUME 98.1 fl (80.0-94.0); MEAN CORPUSCULAR HGB 30.1 pg (27.0-31.0); MEAN CORPUSCULAR HGB CONC 30.7 g/dl (33.0-37.0); MEAN PLATELET VOLUME 8.5 fl (9.6-12.3); PLATELET COUNT AUTOMATED 285 10*3/uL (130-400); RED BLOOD COUNT 2.09 10*6/uL (4.50-5.90); RED CELL DISTRI WIDTH 15.6 % (0-14.5); WHITE BLOOD COUNT 7.8 10*3/uL (4.8-10.8)
[2022-02-16 11:02] LABS: MANUAL DIFF REFLEX YES
[2022-02-16 11:03] LABS: HEMATOCRIT 20.5 % (42.0-52.0)
[2022-02-16 11:15] LABS: POTASSIUM 4.1 mmol/L (3.4-5.1); TOTAL PROTEIN 7.3 gm/dL (6.0-8.0)
[2022-02-16 11:27] LABS: TOTAL CELLS COUNTED 100 #CELLS
[2022-02-16 11:28] LABS: BURR CELLS FEW; PLATELET SUFFICIENCY NORMAL (NORMAL); POLYCHROMASIA SLIGHT; ROULEAUX SLIGHT; TOXIC GRANULATION SLIGHT
[2022-02-16 13:10] VITALS: BP 110/57
[2022-02-16 14:10] VITALS: BP 119/62
[2022-02-16 15:10] VITALS: BP 123/69
[2022-02-16 16:31] VITALS: BP 121/62
[2022-02-16 17:22] VITALS: BP 119/59
[2022-02-16 18:22] VITALS: BP 117/69
== END 2022-02-16 19:00 ==
LOC: ED 10:13
PROVIDERS: Student in an Organized Health Care Education/Training Program
DX: D64.9 Anemia, unspecified (principal); I73.9 Peripheral vascular disease, unspecified; Z98.41 Cataract extraction status, right eye; Z96.1 Presence of intraocular lens; Z87.891 Personal history of nicotine dependence

== ENCOUNTER 2022-04-05 22:33 | Emergency (ER) | payer MEDICARE ==
[~2022-04-05] VITALS: Ht 165.1 cm; Wt 62.1 kg
[2022-04-05] MEDS ORDERED: SEPTDS PO (22:55)
== END 2022-04-06 01:21 ==
LOC: ED 22:33
DX: S41.002A Unspecified open wound of left shoulder, initial encounter (principal); L03.114 Cellulitis of left upper limb; L97.428 Non-pressure chronic ulcer of left heel and midfoot with other specified severity; E11.621 Type 2 diabetes mellitus with foot ulcer; E11.628 Type 2 diabetes mellitus with other skin complications; F32.A Depression, unspecified; I10 Essential (primary) hypertension; K21.9 Gastro-esophageal reflux disease without esophagitis; Z98.41 Cataract extraction status, right eye; Z96.1 Presence of intraocular lens; Z87.891 Personal history of nicotine dependence; X58.XXXA Exposure to other specified factors, initial encounter; Y93.89 Activity, other specified; Y92.89 Other specified places as the place of occurrence of the external cause; Y99.8 Other external cause status

== ENCOUNTER → 2022-05-15 | Outpatient (CLI) | payer MEDICARE ==
[2022-05-15] VITALS (9 sets, daily range): BP systolic 112–125; BP diastolic 49–65
[~2022-05-15] MED LIST changes: +SEPTDS PO
== END | disposition home or self-care (01) ==
LOC: TRNFUSION 00:47
PROVIDERS: ATTEND Internal Medicine
DX: D53.9 Nutritional anemia, unspecified (principal); R79.9 Abnormal finding of blood chemistry, unspecified; I10 Essential (primary) hypertension; K21.9 Gastro-esophageal reflux disease without esophagitis; F32.A Depression, unspecified

== ENCOUNTER → 2022-08-19 | Outpatient (CLI) | payer MEDICARE ==
[~2022-08-19] MED LIST changes: +Ondansetron4 MG PO; +VITAMIN K100 MC1 PO
== END | disposition home or self-care (01) ==
LOC: CARD 00:17
PROVIDERS: ATTEND Family Medicine
DX: I48.20 Chronic atrial fibrillation, unspecified (principal); I50.30 Unspecified diastolic (congestive) heart failure; R07.9 Chest pain, unspecified; I34.0 Nonrheumatic mitral (valve) insufficiency

== ENCOUNTER 2022-10-23 10:27 | Emergency (ER) | payer MEDICARE ==
[~2022-10-23] VITALS: Wt 64.2 kg
[~2022-10-23 10:27] MED LIST changes: +Carafate1 GM PO; +FLORASTOR250 MG PO; +FLUONAZOLE200 MG PO; +MELATONIN10 M4 PO; +MIRTAZAPINE30 M2 PO; +PROTONIX TR40 M1 PO; +VANCOCIN HCL P125 MG PO
[2022-10-23 13:57] LABS: BASO % 0.3 % (0.0-1.0); EOS # 0.1 10*3/uL (0.0-0.4); EOS % 1.1 % (1.0-4.0); HEMATOCRIT 26.2 % (42.0-52.0); LYMPH # 1.1 10*3/uL (1.3-4.4); LYMPH % 15.4 % (27.0-41.0); MEAN CORPUSCULAR HGB 28.6 pg (27.0-31.0); MEAN CORPUSCULAR HGB CONC 30.5 g/dl (33.0-37.0); MONO # 0.7 10*3/uL (0.1-1.0); NEUT # 5.3 10*3/uL (2.3-7.9); NEUT % 73.4 % (47.0-73.0); PLATELET COUNT AUTOMATED 238 10*3/uL (130-400); RED CELL DISTRI WIDTH 15.3 % (0-14.5); WHITE BLOOD COUNT 7.3 10*3/uL (4.8-10.8)
[2022-10-23 13:59] LABS: MEAN CELL VOLUME 93.6 fl (80.0-94.0)
== END 2022-10-23 14:45 | disposition home or self-care (01) ==
LOC: ED 10:27
PROVIDERS: Internal Medicine
DX: D62 Acute posthemorrhagic anemia (principal); F32.A Depression, unspecified; K21.9 Gastro-esophageal reflux disease without esophagitis; I48.91 Unspecified atrial fibrillation; E11.22 Type 2 diabetes mellitus with diabetic chronic kidney disease; I12.0 Hypertensive chronic kidney disease with stage 5 chronic kidney disease or end stage renal disease; N18.6 End stage renal disease; Z98.890 Other specified postprocedural states; Z98.41 Cataract extraction status, right eye; F17.200 Nicotine dependence, unspecified, uncomplicated

== ENCOUNTER 2022-11-09 10:30 | Emergency (ER) | payer MEDICARE ==
[~2022-11-09] VITALS: Ht 172.7 cm; Wt 68.0 kg
[2022-11-09 11:04] LABS: BASO % 0.3 % (0.0-1.0); EOS # 0.1 10*3/uL (0.0-0.4); EOS % 0.8 % (1.0-4.0); HEMATOCRIT 22.8 % (42.0-52.0); LYMPH # 0.9 10*3/uL (1.3-4.4); LYMPH % 12.5 % (27.0-41.0); MEAN CELL VOLUME 93.8 fl (80.0-94.0); MEAN CORPUSCULAR HGB 29.2 pg (27.0-31.0); MEAN CORPUSCULAR HGB CONC 31.1 g/dl (33.0-37.0); MEAN PLATELET VOLUME 9.1 fl (9.6-12.3); MONO # 0.6 10*3/uL (0.1-1.0); MONO % 7.5 % (3.0-9.0); NEUT # 5.8 10*3/uL (2.3-7.9); NEUT % 78.2 % (47.0-73.0); PLATELET COUNT AUTOMATED 193 10*3/uL (130-400); RED BLOOD COUNT 2.43 10*6/uL (4.50-5.90); RED CELL DISTRI WIDTH 17.4 % (0-14.5); WHITE BLOOD COUNT 7.5 10*3/uL (4.8-10.8)
[2022-11-09 11:14] LABS: ACT PARTIAL THROMBO TIME 31.3 SECONDS (20.0-32.1); INTERNATIONAL NORM RATIO 1.1 (2.0-3.5)
[2022-11-09 11:25] LABS: ALKALINE PHOSPHATASE 138 U/L (46-116); BUN 37 mg/dl (9-23); CHLORIDE 109 mmol/L (98-107); POTASSIUM 3.7 mmol/L (3.4-5.1); SGPT/ALT 10 U/L (10-49); TOTAL PROTEIN 7.3 gm/dL (6.0-8.0)
[2022-11-09 12:15] VITALS: BP 108/56
[2022-11-09 12:30] VITALS: BP 116/53
[2022-11-09 13:00] VITALS: BP 117/56
[2022-11-09 14:08] VITALS: BP 114/60
[2022-11-09 14:55] VITALS: BP 123/69
== END 2022-11-09 16:13 | disposition home or self-care (01) ==
LOC: ED 10:30
PROVIDERS: Emergency Medicine
DX: D64.9 Anemia, unspecified (principal); R53.1 Weakness; E11.22 Type 2 diabetes mellitus with diabetic chronic kidney disease; I12.9 Hypertensive chronic kidney disease with stage 1 through stage 4 chronic kidney disease, or unspecified chronic kidney disease; N18.9 Chronic kidney disease, unspecified; I73.9 Peripheral vascular disease, unspecified; E78.5 Hyperlipidemia, unspecified; Z98.890 Other specified postprocedural states; Z98.41 Cataract extraction status, right eye; F32.A Depression, unspecified; I10 Essential (primary) hypertension; K21.9 Gastro-esophageal reflux disease without esophagitis; E11.9 Type 2 diabetes mellitus without complications; I48.91 Unspecified atrial fibrillation

== ENCOUNTER → 2022-12-04 | Outpatient (CLI) | payer MEDICARE ==
[2022-12-04 08:00] VITALS: BP 123/41
[2022-12-04 08:50] VITALS: BP 106/35
[2022-12-04 09:20] VITALS: BP 95/68
[2022-12-04 09:50] VITALS: BP 110/40
[2022-12-04 10:20] VITALS: BP 113/66
[2022-12-04 11:25] VITALS: BP 122/71
== END | disposition home or self-care (01) ==
LOC: TRNFUSION 01:29
PROVIDERS: ATTEND Internal Medicine
DX: D64.9 Anemia, unspecified (principal); I12.0 Hypertensive chronic kidney disease with stage 5 chronic kidney disease or end stage renal disease; E11.22 Type 2 diabetes mellitus with diabetic chronic kidney disease; N18.6 End stage renal disease; I48.91 Unspecified atrial fibrillation; K21.9 Gastro-esophageal reflux disease without esophagitis; F32.A Depression, unspecified

== ENCOUNTER 2022-12-26 12:03 | Emergency (ER) | payer MEDICARE ==
[2022-12-26 12:52] LABS: BASO % 0.4 % (0.0-1.0); EOS # 0.1 10*3/uL (0.0-0.4); EOS % 0.8 % (1.0-4.0); HEMATOCRIT 23.7 % (42.0-52.0); LYMPH % 13.2 % (27.0-41.0); MEAN CELL VOLUME 94.4 fl (80.0-94.0); MEAN CORPUSCULAR HGB 28.3 pg (27.0-31.0); MEAN PLATELET VOLUME 8.9 fl (9.6-12.3); MONO # 0.6 10*3/uL (0.1-1.0); MONO % 7.7 % (3.0-9.0); NEUT # 5.6 10*3/uL (2.3-7.9); NEUT % 77.2 % (47.0-73.0); PLATELET COUNT AUTOMATED 206 10*3/uL (130-400); RED BLOOD COUNT 2.51 10*6/uL (4.50-5.90); RED CELL DISTRI WIDTH 15.8 % (0-14.5); WHITE BLOOD COUNT 7.3 10*3/uL (4.8-10.8)
[2022-12-26 13:14] LABS: ALKALINE PHOSPHATASE 134 U/L (46-116); BUN 37 mg/dl (9-23); CHLORIDE 109 mmol/L (98-107); POTASSIUM 3.9 mmol/L (3.4-5.1); SGPT/ALT 10 U/L (5-49); TOTAL PROTEIN 7.8 gm/dL (6.0-8.0)
== END 2022-12-26 19:23 | disposition home or self-care (01) ==
LOC: ED 12:03
PROVIDERS: Nurse Practitioner Family
DX: D64.9 Anemia, unspecified (principal); E43 Unspecified severe protein-calorie malnutrition; I48.91 Unspecified atrial fibrillation; I25.10 Atherosclerotic heart disease of native coronary artery without angina pectoris; F32.A Depression, unspecified; K21.9 Gastro-esophageal reflux disease without esophagitis; E11.22 Type 2 diabetes mellitus with diabetic chronic kidney disease; I12.0 Hypertensive chronic kidney disease with stage 5 chronic kidney disease or end stage renal disease; N18.6 End stage renal disease; E11.51 Type 2 diabetes mellitus with diabetic peripheral angiopathy without gangrene; Z79.899 Other long term (current) drug therapy; Z87.891 Personal history of nicotine dependence

== ENCOUNTER → 2022-12-28 | Outpatient (CLI) | payer MEDICARE | END | disposition home or self-care (01) | LOC: CARD 12-15 13:00 | PROVIDERS: ATTEND Internal Medicine Cardiovascular Disease | DX: I34.0 Nonrheumatic mitral (valve) insufficiency (principal); R06.02 Shortness of breath; I48.91 Unspecified atrial fibrillation ==

== ENCOUNTER → 2023-03-02 | Outpatient (CLI) | payer MEDICARE ==
[~2023-03-02] MED LIST changes: +PLAVIX75 M1 PO
[2023-03-02 10:06] VITALS: BP 130/63
[2023-03-02 10:21] VITALS: BP 106/49
[2023-03-02 10:36] VITALS: BP 110/51
[2023-03-02 11:21] VITALS: BP 122/58
[2023-03-02 12:21] VITALS: BP 100/47
[2023-03-02 12:55] VITALS: BP 127/63
== END | disposition home or self-care (01) ==
LOC: TRNFUSION 05:14
PROVIDERS: ATTEND Internal Medicine
DX: D64.9 Anemia, unspecified (principal); I12.0 Hypertensive chronic kidney disease with stage 5 chronic kidney disease or end stage renal disease; E11.22 Type 2 diabetes mellitus with diabetic chronic kidney disease; N18.6 End stage renal disease; K21.9 Gastro-esophageal reflux disease without esophagitis; I48.91 Unspecified atrial fibrillation; F32.A Depression, unspecified; Z87.891 Personal history of nicotine dependence

== ENCOUNTER 2023-03-30 21:14 | Emergency (ER) | payer OTHER, MEDICAID ==
[~2023-03-30] VITALS: Ht 190.5 cm; Wt 69.8 kg
[~2023-03-30 21:14] MED LIST changes: -SODIUM CHLORIDE 0.9% 250 ML IV SCH
[2023-03-30 22:30] LABS: HEMATOCRIT 22.1 % (42.0-52.0); MEAN CELL VOLUME 91.7 fl (80.0-94.0); MEAN CORPUSCULAR HGB CONC 29.4 g/dl (33.0-37.0); MEAN PLATELET VOLUME 8.6 fl (9.6-12.3); PLATELET COUNT AUTOMATED 167 10*3/uL (130-400); RED BLOOD COUNT 2.41 10*6/uL (4.50-5.90); RED CELL DISTRI WIDTH 17.2 % (0-14.5)
[2023-03-30 22:35] LABS: MANUAL DIFF REFLEX YES
[2023-03-30 23:02] LABS: PLATELET SUFFICIENCY NORMAL (NORMAL); TOTAL CELLS COUNTED 100 #CELLS
[2023-03-30 23:03] LABS: MICROCYTOSIS SLIGHT
[2023-03-31] MEDS ORDERED: SODIUM CHLORIDE 0.9% 500 ML IV ONE (00:12)
[2023-03-31 00:57] VITALS: BP 115/51
[2023-03-31 01:58] VITALS: BP 129/63
[2023-03-31 02:58] VITALS: BP 119/63
== END 2023-03-31 03:41 ==
LOC: ED 21:14
PROVIDERS: Emergency Medicine
DX: D64.9 Anemia, unspecified (principal); I48.91 Unspecified atrial fibrillation; I25.10 Atherosclerotic heart disease of native coronary artery without angina pectoris; F32.A Depression, unspecified; I10 Essential (primary) hypertension; E11.9 Type 2 diabetes mellitus without complications; E83.52 Hypercalcemia; E87.6 Hypokalemia; K21.9 Gastro-esophageal reflux disease without esophagitis; E11.22 Type 2 diabetes mellitus with diabetic chronic kidney disease; I12.0 Hypertensive chronic kidney disease with stage 5 chronic kidney disease or end stage renal disease; N18.6 End stage renal disease; E11.65 Type 2 diabetes mellitus with hyperglycemia; Z98.890 Other specified postprocedural states; Z87.891 Personal history of nicotine dependence

== ENCOUNTER → 2023-03-30 | Outpatient (CLI) | payer OTHER, MEDICAID ==
[~2023-03-30] MED LIST changes: +SODIUM CHLORIDE 0.9% 250 ML IV SCH
[2023-03-30 09:06] VITALS: BP 118/54
[2023-03-30 09:21] VITALS: BP 115/47
[2023-03-30 09:36] VITALS: BP 105/68
[2023-03-30 10:21] VITALS: BP 126/71
[2023-03-30 11:21] VITALS: BP 125/68
[2023-03-30 12:08] VITALS: BP 128/70
== END | disposition home or self-care (01) ==
LOC: TRNFUSION 01:19
PROVIDERS: ATTEND Internal Medicine
DX: D63.1 Anemia in chronic kidney disease (principal); I12.0 Hypertensive chronic kidney disease with stage 5 chronic kidney disease or end stage renal disease; E11.22 Type 2 diabetes mellitus with diabetic chronic kidney disease; N18.6 End stage renal disease; I48.91 Unspecified atrial fibrillation; F32.A Depression, unspecified; K21.9 Gastro-esophageal reflux disease without esophagitis; Z89.611 Acquired absence of right leg above knee

== ENCOUNTER → 2023-09-14 | Outpatient (CLI) | payer MEDICARE ==
[~2023-09-14] MED LIST changes: +AMMONIUM LACTA385 GM MC; +ASPIRIN ADULT L81 M1 PO; +BARIUM SULFATE 98% 340 GM BOT PO ONE; +DAILY VALUE1 EACH PO; +MASON NATURAL325 MG PO; +MIRALAX17 GM PO; +MUCINEX1200 M1 PO; +ZITHROMAX250 MG PO
== END | disposition home or self-care (01) ==
LOC: RAD/SH 08:33
PROVIDERS: ATTEND Internal Medicine
DX: R13.10 Dysphagia, unspecified (principal)